=== PATIENT | male | born 1990 | race American Indian/Alaskan Native ===

== ENCOUNTER 2016-09-19 06:46 | Observation (INO) | payer SELFPAY ==
[2016-09-19 06:51] VITALS: RESP 18; BMI 45.6
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
[2016-09-19 13:01] VITALS: PULSE 86; O2SAT 96
[2016-09-19 15:49] VITALS: BP 148/79; TEMP 98.9
== END 2016-09-19 14:40 | disposition home or self-care (01) ==
LOC: ED 06:46 → EROBSV 10:50
PROVIDERS: ADMIT Student in an Organized Health Care Education/Training Program; ATTEND Student in an Organized Health Care Education/Training Program
DX: F10.129 Alcohol abuse with intoxication, unspecified (principal)
CPT/HCPCS: 99283; G0378